=== PATIENT | male | born 1975 | race Two or more races ===

== ENCOUNTER 2021-09-01 14:39 | Emergency (ER) | payer OTHER ==
[~2021-09-01] VITALS: Ht 177.8 cm; Wt 113.4 kg
[2021-09-01] MEDS ORDERED: ZOCOR20 MG PO (15:09)
[2021-09-01] MEDS ORDERED: GRALISE600 MG PO (15:10)
[2021-09-01] MEDS ORDERED: CARDURA XL4 MG PO (15:10)
[2021-09-01] MEDS ORDERED: PLAVIX75 MG (15:10)
[2021-09-01] MEDS ORDERED: ADULT ASPIRIN81 MG PO (15:11)
[2021-09-01] MEDS ORDERED: SIMVASTATIN5 MG (15:11)
[2021-09-01] MEDS ORDERED: AMLODIPINE-OLM1 EACH PO (15:11)
[2021-09-01] MEDS ORDERED: GLUMETZA1000 MG PO (15:11)
== END 2021-09-01 21:45 | disposition home or self-care (01) ==
LOC: ER 14:39
DX: A08.4 Viral intestinal infection, unspecified (principal); R05.9 Cough, unspecified; E11.621 Type 2 diabetes mellitus with foot ulcer; Z79.84 Long term (current) use of oral hypoglycemic drugs; L97.529 Non-pressure chronic ulcer of other part of left foot with unspecified severity; Z20.822 Contact with and (suspected) exposure to COVID-19